=== PATIENT | female | born 1955 | race Caucasian/White ===

== ENCOUNTER → 2017-05-30 | Outpatient (CLI) | payer OTHER | END | disposition home or self-care (01) | LOC: RAH 08:26 | PROVIDERS: ATTEND Family Medicine | DX: I42.9 Cardiomyopathy, unspecified (principal); I34.0 Nonrheumatic mitral (valve) insufficiency | CPT/HCPCS: 93306 ==

== ENCOUNTER 2017-06-03 22:10 | Emergency (ER) | payer OTHER ==
[2017-06-03 22:41] LABS: BASOPHILS % (AUTO) 0.6 % (0.0-5.0); HEMATOCRIT 36.5 % (36-48); LYMPHOCYTES % (AUTO) 19.3 % (21.0-51.0); MEAN CORPUSCULAR HEMOGLOBIN 27.5 pg (27.0-33.0); MEAN CORPUSCULAR HGB CONC 33.8 g/dL (32.0-36.0); MEAN CORPUSCULAR VOLUME 81.5 fL (79-99); MONOCYTES % (AUTO) 7.3 % (3.0-13.0); NEUTROPHILS % (AUTO) 71.8 % (40.0-77.0); PLATELET COUNT (AUTO) 338 K/uL (130-400); RED BLOOD CELL COUNT(AUTO) 4.48 MIL/uL (4.00-5.50); RED CELL DISTRIBUTION WIDTH 12.6 % (11.0-15.5); WHITE BLOOD COUNT (AUTO) 17.6 K/uL (4.8-10.8)
[2017-06-03 22:58] LABS: CREATININE 1.5 mg/dL (0.5-1.5); POTASSIUM 4.5 mmol/L (3.5-5.1)
[2017-06-03 23:02] LABS: ALBUMIN 4.1 g/dL (3.5-5.0); BILIRUBIN,TOTAL 0.4 mg/dL (0.2-1.0); TOTAL PROTEIN, SERUM 8.8 g/dL (6.0-8.3)
[2017-06-03 23:07] LABS: RAPID GROUP A STREP NEGATIVE (NEGATIVE)
[2017-06-03] MEDS ORDERED: SODIUM CHLORIDE 0.9% 1000ML 1,000 ML IV ONE (23:43)
[2017-06-03] MEDS ORDERED: LEVOFLOXACIN 500 MG/D5W 100 ML 100 ML ONE (23:43)
[2017-06-04] MEDS ORDERED: VANCOMYCIN 1GM+NS 250ML 250 ML IV ONE (01:00)
[2017-06-04] MEDS ORDERED: IPRATROPIUM/ALBUTEROL SULFATE 3 ML SOLUTION IH ONE (02:03)
== END 2017-06-04 04:41 | disposition home or self-care (01) ==
LOC: EDH 22:10
DX: J40 Bronchitis, not specified as acute or chronic (principal); E11.9 Type 2 diabetes mellitus without complications; I11.0 Hypertensive heart disease with heart failure; I50.9 Heart failure, unspecified; Z87.891 Personal history of nicotine dependence; Z88.6 Allergy status to analgesic agent
CPT/HCPCS: 36415; 71045; 80053; 85025; 87804 ×2; 87880; 93005; 94640; 96365; 96366; 96367; 99285; J1956; J3370; J7030

== ENCOUNTER → 2018-08-13 | Outpatient (CLI) | payer OTHER | END | disposition home or self-care (01) | LOC: RAH 12:28 | PROVIDERS: ATTEND Family Medicine | DX: R92.1 Mammographic calcification found on diagnostic imaging of breast (principal) | CPT/HCPCS: 76641; 77066 ==

== ENCOUNTER 2021-03-09 21:52 | Emergency (ER) | payer OTHER ==
[~2021-03-09] VITALS: Ht 154.9 cm; Wt 72.6 kg
[2021-03-09] MEDS ORDERED: AEC81 PO (22:14)
[2021-03-09] MEDS ORDERED: SEMA1PEN3 SQ (22:14)
[2021-03-09] MEDS ORDERED: GLIP10TA9 PO (22:14)
[2021-03-09] MEDS ORDERED: ENAL2.5T16 PO (22:14)
[2021-03-09] MEDS ORDERED: ATOR40TA69 PO (22:14)
[2021-03-09] MEDS ORDERED: FURO20TA4 PO (22:14)
[2021-03-09] MEDS ORDERED: CARV3.12 PO (22:14)
[2021-03-09] MEDS ORDERED: SPIR25TA6 PO (22:14)
[2021-03-09] MEDS ORDERED: METF-446 PO (22:14)
[2021-03-09] MEDS ORDERED: MECLIZINE HCL 25 MG TABLET PO ONE (22:30)
[2021-03-09 22:37] LABS: BASOPHILS % (AUTO) 0.7 % (0.0-5.0); EOSINOPHILS % (AUTO) 5.4 % (0.0-8.0); LYMPHOCYTES % (AUTO) 23.5 % (21.0-51.0); MEAN CORPUSCULAR HEMOGLOBIN 27.3 pg (27.0-33.0); MEAN CORPUSCULAR HGB CONC 32.4 g/dL (32.0-36.0); MEAN CORPUSCULAR VOLUME 84.4 fL (79-99); MONOCYTES % (AUTO) 6.3 % (3.0-13.0); NEUTROPHILS % (AUTO) 63.7 % (40.0-77.0); PLATELET COUNT (AUTO) 260 K/uL (130-400); WHITE BLOOD COUNT (AUTO) 13.4 K/uL (4.8-10.8)
[2021-03-09 22:54] LABS: ALANINE AMINOTRANSFERASE 20 U/L (12-78); ALBUMIN 3.5 g/dL (3.5-5.0); ASPARTATE AMINOTRANSFERASE 14 U/L (10-37); BILIRUBIN,TOTAL 0.3 mg/dL (0.2-1.0); CARBON DIOXIDE 25 mmol/L (21-32); CHLORIDE 106 mmol/L (101-111); CREATININE 1.5 mg/dL (0.5-1.5); GLOMERULAR FILTR. RATE CALC 37 mL/min (>60); GLUCOSE,RANDOM 142 mg/dL (70-105); POTASSIUM 4.4 mmol/L (3.5-5.1); SODIUM SERUM 145 mmol/L (136-145); TOTAL PROTEIN, SERUM 8.2 g/dL (6.0-8.3); UREA NITROGEN, BLOOD 26 mg/dL (7-18)
[2021-03-09 23:02] LABS: CRP QUANTITATIVE < 2.00 mg/L (0.00-9.0)
[2021-03-09 23:05] LABS: B-TYPE NATRIURETIC PEPTIDE 53 pg/mL (0-100)
[2021-03-09 23:41] VITALS: BP 135/63
[2021-03-09 23:42] LABS: APPEARANCE,URINE Clear (CLEAR); BILIRUBIN,URINE Negative (NEGATIVE); COLOR,URINE Yellow (YELLOW); GLUCOSE, URINE (UA) Negative (NEGATIVE); KETONES,URINE Trace mg/dL (NEGATIVE); LEUKOCYTE ESTERASE ,URINE Moderate (NEGATIVE); NITRATE,URINE Negative (NEGATIVE); OCCULT BLOOD,URINE Negative (NEGATIVE); PROTEIN,URINE Negative (NEGATIVE); UROBILINOGEN,URINE 0.2 mg/dL (0.2-1.0)
[2021-03-09] MEDS ORDERED: MECL-226 PO (23:51)
[2021-03-09] MEDS ORDERED: CEPH500B PO (23:58)
[2021-03-10] LABS: RBC,URINE 0-1 /HPF (0-1)
[2021-03-10] MEDS ORDERED: CEFTRIAXONE 1G VIAL IVP ONE
[2021-03-10 00:01] LABS: SQUAMOUS EPITHELIAL CELL,UR Moderate /HPF (0-2)
[2021-03-10 00:03] LABS: BACTERIA,URINE Few /HPF (None Seen)
[2021-03-10] MEDS ORDERED: 0.9%NACL 1000ML 1,000 ML IV ONE (00:30)
== END 2021-03-10 01:28 | disposition home or self-care (01) ==
LOC: EDH 21:52
DX: N39.0 Urinary tract infection, site not specified (principal); F41.9 Anxiety disorder, unspecified; R42 Dizziness and giddiness; E11.9 Type 2 diabetes mellitus without complications; I10 Essential (primary) hypertension; Z88.5 Allergy status to narcotic agent; Z79.82 Long term (current) use of aspirin; Z79.84 Long term (current) use of oral hypoglycemic drugs; Z79.899 Other long term (current) drug therapy
CPT/HCPCS: 36415; 70450; 71045; 80053; 81001; 83880; 84484; 85025; 86140; 87088; 93005; 96361; 96374; 99285; J0696; J7030

== ENCOUNTER → 2023-08-22 | Outpatient (CLI) | payer OTHER ==
[~2023-08-22] MED LIST: AEC81 PO; ATOR40TA69 PO; CARV3.12 PO; CEPH500B PO; ENAL2.5T71 PO; FURO20TA4 PO; GLIP10TA9 PO; MECL-226 PO; METF-446 PO; SEMA1PEN3 SQ; SPIR25TA6 PO
== END | disposition home or self-care (01) ==
LOC: RAH 07:23
PROVIDERS: ATTEND Family Medicine
DX: N60.01 Solitary cyst of right breast (principal); R92.1 Mammographic calcification found on diagnostic imaging of breast
CPT/HCPCS: 77066

== ENCOUNTER → 2024-08-24 | Outpatient (CLI) | payer OTHER ==
[~2024-08-24] MED LIST changes: +GLIP10TA16 PO; -GLIP10TA9 PO
--- NOTE | 2024-08-26 11:27 | HMCIMG ---
MAMMO SCREENING BILATERAL HISTORY: Screening mammogram. COMPARISON: 08/22/2023 TECHNIQUE: Bilateral screening mammogram with CAD was performed with craniocaudal and mediolateral oblique projections. FINDINGS: There are scattered areas of fibroglandular density. Asymmetric breast density is seen in the upper outer quadrant of the left breast unchanged. There is no evidence of a dominant mass, or suspicious microcalcification. There is no evidence of nipple retraction or skin thickening. IMPRESSION: 1. Stable mammogram. Patient was entered into a reminder system with a target due date for their next mammogram. BI-RADS: CATEGORY 2: BENIGN FINDINGS Recommend monthly self breast exam as well as annual clinical examination. A negative x-ray should not delay biopsy if a dominant or clinically suspicious mass is present, since 8-10% of cancers are not identified by mammography. Dense breasts particularly, may obscure an underlying neoplasm. Some of these may be detected clinically and therefore, clinical examination is an essential part of breast evaluation.
== END | disposition home or self-care (01) ==
LOC: RAH 13:58
PROVIDERS: ATTEND Family Medicine
DX: Z12.31 Encounter for screening mammogram for malignant neoplasm of breast (principal)
CPT/HCPCS: 77067